=== PATIENT | female | born 1985 | race Caucasian/White ===

== ENCOUNTER 2017-05-22 08:54 | Outpatient (CLI) | payer BC ==
[2012-10-22 12:48] VITALS: BP 116/80
[2017-05-22 09:29] LABS: BASOPHILS % 0.9 (0.0-1.5); MEAN CORPUSCULAR HEMOGLOBIN 23.3 pg (28.0-34.0); MEAN CORPUSCULAR VOLUME 80.1 fl (80.0-100.0); MONOCYTES % 3.8 % (0.0-11.0); NEUTROPHILS # 2.8 # k/uL (1.4-7.7)
[2017-05-22 09:57] LABS: eGFR (Non-African) > 60
== END 2017-05-22 09:00 ==
LOC: LAB 08:54
PROVIDERS: ATTEND Physician Assistant
DX: R42 Dizziness and giddiness (principal)
CPT/HCPCS: 36415; 80053; 83540; 84443; 84703; 85025

== ENCOUNTER 2017-07-30 11:53 | Outpatient (CLI) | payer BC ==
[2012-10-22 12:48] VITALS: BP 116/80
== END 2017-07-30 13:19 ==
LOC: LAB 11:53
PROVIDERS: ATTEND Obstetrics & Gynecology Gynecology
DX: Z32.01 Encounter for pregnancy test, result positive (principal); N91.2 Amenorrhea, unspecified
CPT/HCPCS: 36415; 84702

== ENCOUNTER 2018-07-23 01:32 | Emergency (ER) | payer BC, OTHER ==
[2018-07-23] MEDS ORDERED: 0.9 % SODIUM CHLORIDE 1,000 ML IV ONE ×2 (01:52→03:01)
[2018-07-23] MEDS ORDERED: KETOROLAC TROMETHAMINE 30 MG/1ML VIAL IV ONE (01:52)
--- NOTE | 2018-07-23 01:54 | ED Physician Documentation ---
Flank Pain - HISTORIAN Historian: patient - HPI Stated Complaint: Rt side/flank pain Chief Complaint: Flank Pain Additional Information: Patient presents to ED with right flank pain which started around 2300 tonight. Patient has a history of kidney stones, her last was 2 years ago, which she passed. She has a history of stone retrieval/lithotripsy. Patient rates the pain, 10/10, sharp stabbing, radiating to right lower quadrant with associated nausea/vomiting. Onset: hours (3) Duration: constant Timing: still present Context: denies: out of country travel Severity: severe Quality: pain, sharp, stabbing Associated Symptoms: nausea, vomiting Exacerbated by: upright position Relieved by: supine Further Comments: no - ROS CONST: no problems GI/: none CVS/RESP: none EYES/ENT: none MS/SKIN/LYMPH: none NEURO/PSYCH: none - SOCIAL HX Smoking History: non-smoker Alcohol Use: none Drug Use: none - FAMILY HX Family History: none - PAST HX Past History: kidney stones Ischemic Bowel Risk Factors: none Other History: none Surgeries/Procedures: none Medications: none - VITAL SIGNS Vital Signs: Vital Signs Temp Pulse Resp BP Pulse Ox 98.1 F 82 14 171/105 100 07/23/18 01:32 07/23/18 01:32 07/23/18 01:32 07/23/18 01:32 07/23/18 01:32 - REVIEWED ASSESSMENTS Nursing Assessment Reviewed: Yes Vitals Reviewed: Yes ED Results Lab/Radiology - Lab Results Lab Results: UA - 2+ blood, otherwise negative HCG urine - negative wbc 6.2, Hgb 11.8, Hct 35.2, Plt 220. Na 137.55, K 3.94, Cl 103, CO2 28, Glucose 118, Bun 16.72, Cr 0.684, Ca 9.665, Alt 24, AST 29, Alk ph 102, Bili 0.346, Alb 4.2 - Radiology Radiology Impressions: Report Submission Date: July 23, 2018 2:51:33 AM CDT Patient Study Name: JESSICA PAIZ Date: July 23, 2018 2:25:57 AM CDT Modality Type: CT\SR Gender: F Description: CT ABD PELVIS W/O CO : 83 Institution: [facility] Physician: GLENNA STEWARD CT abdomen and pelvis without contrast Clinical history: Right flank pain for 4 days. History of kidney stones. Technique: CT the abdomen and pelvis is performed without oral or intravenous administration of contrast. Sagittal and coronal reconstructions were performed by the technologist. Findings: Visualized lung bases are clear. The liver and spleen demonstrate normal attenuation without focal defect. Gallbladder is normally distended. There is a small calcified gallstone within the gallbladder. There is no pancreatic or adrenal abnormality. The left kidney and collecting system are unremarkable. There is right hydronephrosis and hydroureter with a 6 mm stone in the right ureter at the L4-5 level. There are intrarenal calculi as well. There is no retroperitoneal mass or significant adenopathy. Appendix is visualized and is within normal limits. Gas and stool are present throughout the colon. Uterus and adnexal structures are within normal limits. There is no free fluid in the pelvis or abdomen. Impression: 1. 6 mm right ureteral calculus at the L4-5 level with right obstructive uropathy. 2. Right intrarenal calculi. 3. Cholelithiasis. 4. Negative appendix. Electronically signed on July 23, 2018 2:51:33 AM CDT by: Ayden Davies - Orders Orders: ED Orders Category Date Time Status CBC/PLATELET/DIFF Routine Lab 07/23/18 Ordered CMP Routine Lab 07/23/18 Ordered UA W/MICRO IF INDICATED Routine Lab 07/23/18 01:52 Ordered Ketorolac Tromethamine [Toradol] Med 07/23/18 01:52 Once 30 mg IV NOW ONE NORMAL SALINE @ 1000 MLS/HR ( 1000ml BOLUS) Med 07/23/18 01:52 Ordered 0.9 % Sodium Chloride [Normal Saline] 1,000 ml IV Q1H Abdominal Pain Physical Exam - Physical Exam General Appearance: alert, mild distress EENT: JOHN NECK: normal inspection, supple RESPIRATORY: no resp distress, chest non-tender, breath sounds normal CVS: reg rate & rhythm, heart sounds normal ABDOMEN: soft, normal bowel sounds, non-tender BACK: normal inspection, CVA tenderness (R) SKIN: warm/dry, normal color EXTREMITIES: non-tender, normal range of motion, no edema NEURO: oriented X3, motor nml, mood/affect nml Vital Signs: Vital Signs Temp Pulse Resp BP Pulse Ox 98.1 F 82 14 171/105 100 07/23/18 01:32 07/23/18 01:32 07/23/18 01:32 07/23/18 01:32 07/23/18 01:32 Discharge Clincal Impression: Kidney stone on right side Referrals: Primary Doctor,No [Primary Care Provider] - 2 Days Additional Instructions: 1. Call and make an appointment as soon as possible with [facility] [address] [place] [id number] Location Hours Friday - Friday: 8:00am - 5:00pm Contact Toll Free: [phone] 2. Drink plenty of fluids to maintain proper hydration. Avoid caffeine, energy drinks and alcohol 3. Use pain medication as directed 4. Follow up with PCP within 1 week 5. Return to ER for new or worsening symptoms Condition: Stable Disposition: 01 HOME, SELF-CARE Decision to Admit: NO Date of Decison to Admit: 07/23/18 Decision Time: 03:08
[2018-07-23] MEDS ORDERED: ONDANSETRON HCL/PF 4 MG/ 2ML VIAL IVP ONE (01:56)
[2018-07-23] MEDS: HYDROmorphone HCL/PF 1 MG/ML VIAL IVP ONE ×2 (02:23→03:32)
--- NOTE | 2018-07-23 03:02 | Diagnostic Imaging Report ---
GLENNA STEWARD [facility] [id number] [facility] [address] [place], [place]. [address] Report Submission Date: July 23, 2018 2:51:33 AM CDT Patient Study Name: JESSICA PAIZ Date: July 23, 2018 2:25:57 AM CDT Modality Type: CT\SR Gender: F Description: CT ABD PELVIS W/O CO : 84 Institution: [facility] Physician: GLENNA STEWARD CT abdomen and pelvis without contrast Clinical history: Right flank pain for 4 days. History of kidney stones. Technique: CT the abdomen and pelvis is performed without oral or intravenous administration of contrast. Sagittal and coronal reconstructions were performed by the technologist. Findings: Visualized lung bases are clear. The liver and spleen demonstrate normal attenuation without focal defect. Gallbladder is normally distended. There is a small calcified gallstone within the gallbladder. There is no pancreatic or adrenal abnormality. The left kidney and collecting system are unremarkable. There is right hydronephrosis and hydroureter with a 6 mm stone in the right ureter at the L4-5 level. There are intrarenal calculi as well. There is no retroperitoneal mass or significant adenopathy. Appendix is visualized and is within normal limits. Gas and stool are present throughout the colon. Uterus and adnexal structures are within normal limits. There is no free fluid in the pelvis or abdomen. Impression: 1. 6 mm right ureteral calculus at the L4-5 level with right obstructive uropathy. 2. Right intrarenal calculi. 3. Cholelithiasis. 4. Negative appendix. Electronically signed on July 23, 2018 2:51:33 AM CDT by: Ayden PARISI
[2018-07-23] MEDS ORDERED: HYDROmorphone HCL/PF 1 MG/ML VIAL IVP ONE (03:15)
[2018-07-23] MEDS ORDERED: oxyCODONE/ACETAMINOPHEN 5/325 TABLET PO ONE (03:15)
[2018-07-23] MEDS ORDERED: PROMETHAZINE HCL 25 MG in 0.9 % SODIUM CHLORIDE 50 ML IV ONE (03:26)
[2018-07-23 04:31] VITALS: BP 147/94
[2018-07-23 06:51] LABS: APPEARANCE,URINE CLEAR (CLEAR); COLOR,URINE YELLOW (YELLOW); OCCULT BLOOD,URINE 2+ (NEGATIVE); PH URINE 6.5 (5.0 - 8.0)
[2018-07-23 06:52] LABS: URINE HCG NEGATIVE (NEGATIVE); UROBILINOGEN URINE 0.2 Eu (0.2-1.0)
[2018-07-23 06:53] LABS: eGFR (Non-African) > 60
[2018-07-23 06:55] LABS: BASOPHILS % 0.4 % (0.0-1.5); EOSINOPHILS % 1.8 % (0.0-6.8); MEAN CORPUSCULAR HEMOGLOBIN 27.1 pg (28.0-34.0); MONOCYTES % 4.9 % (0.0-11.0); NEUTROPHILS # 3.8 # k/uL (1.4-7.7)
== END 2018-07-23 03:55 | disposition home or self-care (01) ==
LOC: ED 01:32
DX: N20.0 Calculus of kidney (principal); Z87.442 Personal history of urinary calculi
CPT/HCPCS: 36415; 74176; 80053; 81002; 81025; 85025; 96374; 96375; 99283; 99284; J1170; J1885; J2405; J2550; A9270-GY; J7030; S1016